=== PATIENT | male | born 1960 | race African-American/Black ===

== ENCOUNTER 2021-10-18 12:31 | Emergency (ER) | payer OTHER ==
[2021-10-18 12:42] VITALS: BP 136/95
--- NOTE | 2021-10-18 13:22 | XRAY Report ---
PROCEDURE: Ankle 3 View RT INDICATIONS: injury TECHNIQUE: 3 views of the ankle were acquired. COMPARISON: None FINDINGS: Bones: There is a displaced fracture of the medial malleolus. The margins of the fracture have rounde d edges suggesting this is a subacute or chronic finding. It is an incidentally noted os trigonum. An kle mortise is normally aligned. No suspicious bony lesions. Soft tissues: No tibiotalar joint effusion. Achilles tendon appears normal. There are scattered so ft tissue vascular calcifications. IMPRESSION: 1. Minimally displaced medial malleolar fracture with rounded edges suggesting a subacute or chronic nonunified fracture. Reviewed by: Kelly Bear MD on 10/18/2021 1:21 PM PDT Approved by: Kelly Bear MD on 10/18/2021 1:21 PM PDT Station ID: [id number]
[2021-10-18] MEDS ORDERED: IBUPROFEN 800 MG TABLET PO STA (14:05)
--- NOTE | 2021-10-18 14:06 | ED Physician Documentation ---
History of Present Illness - Stated complaint Stated Complaint: RT ANKLE INJ - Chief complaint Chief Complaint: Ext Problem - History obtained from History obtained from: Patient - History of Present Illness Timing: Last night Pain level max: 5 Pain level now: 3 - Additonal information Additional information: Patient is a 61-year-old male who presents to the emergency department with right ankle pain on the medial malleolus. He states that he was crossing the street when he accidentally hit his ankle on a metal pole. Worse with walking, better with rest. Mild swelling today. He is able to ambulate without difficulty. No numbness or tingling. He states that he fractured this ankle as a child. Review of Systems Constitutional: denies: Fever Respiratory: denies: Cough GI: denies: Vomiting, Diarrhea PD PAST MEDICAL HISTORY - Past Medical History Past Medical History: No - Allergies Allergies/Adverse Reactions: Allergies Allergy/AdvReac Type Severity Reaction Status Date / Time No Known Drug Allergies Allergy Verified 10/18/21 12:42 - Living Situation Living Arrangement: reports: At home - Social History Does the pt smoke?: No Does the pt have substance abuse?: No - Family History Family history: reports: Non contributory PD ED PE NORMAL - Vitals Vital signs reviewed: Yes - General General: Alert and oriented X 3, No acute distress - HEENT HEENT: Moist mucous membranes - Derm Derm: Warm and dry - Extremities Extremities: Other (Right ankle - Tender to palpation over the medial malleolus. Mild swelling. Mild ecchymosis. Neurovascular intact. Otherwise normal examination of the foot, ankle and lower leg.) - Neuro Neuro: Alert and oriented X 3 Results - Vitals Vitals: Vital Signs - 24 hr 10/18/21 12:36 Temperature 36.2 C L Heart Rate 74 Respiratory 16 Rate Blood Pressure 136/95 H O2 Saturation 100 Oxygen O2 Source Room air - Rads (name of study) Right ankle x-ray Radiology: Final report received, EMP read contemporaneously, See rad report PD MEDICAL DECISION MAKING - ED course Complexity details: reviewed results, re-evaluated patient, considered differential, d/w patient ED course: There appears to be an old fracture on x-ray of the right ankle. No acute abnormalities. Placed in a gel splint for comfort. Patient declines any crutches. Ambulating without any difficulty. No limp. We will have him follow-up with his doctor for further care. Patient declines any pain medication for home. Patient counseled regarding signs and symptoms for which I believe and urgent re-evaluation would be necessary. Patient with good understanding of and agreement to plan and is comfortable going home at this time This document was made in part using voice recognition software. While efforts are made to proofread this document, sound alike and grammatical errors may occur. Departure - Departure Disposition: Home, Self Care Clinical Impression: Right ankle sprain Qualifiers: Encounter type: initial encounter Involved ligament of ankle: unspecified ligament Qualified Code(s): S93.401A - Sprain of unspecified ligament of right ankle, initial encounter Condition: Good Instructions: ED Sprain Ankle Follow-Up: Provider,Other [Primary Care Provider] - Within 1 week Comments: Your x-ray does not show any acute abnormalities today. It appears to be an ankle sprain. Use the brace as prescribed. Follow-up with your doctor for further care. Discharge Date/Time: 10/18/21 14:22
== END 2021-10-18 14:22 | disposition home or self-care (01) ==
LOC: ED 12:31
DX: S93.401A Sprain of unspecified ligament of right ankle, initial encounter (principal); W22.8XXA Striking against or struck by other objects, initial encounter
CPT/HCPCS: 73610; 99282; 99283; A9270